=== PATIENT | male | born 1935 | race Caucasian/White ===

== ENCOUNTER → 2016-12-18 | Outpatient (CLI) | payer MEDICARE, BC ==
[~2016-12-18] MED LIST: ALDACTONE 25MG25 M1 PO; ALLOPURINOL100 MG PO; AMBIEN 10MG10 MG PO; ARICEPT PO; ARICEPT10 MG PO; ASPIRIN 32325 MG/TA1 PO; ASPIRIN E.C. 8181 MG PO; ATARAX 25MG25 MG/TAB PO; BENADRYL; CEPHALEXIN500 M1 PO; CINNAMON500 MG PO; CIPRO500 MG PO; CLEOCIN HCL300 MG PO; COREG 25MG25 MG/TAB PO; COUMADIN 5MG5 MG/TAB PO; COUMADIN 77.5 MG/TAB PO; COUMADIN5 MG PO; DESYREL 50MG50 MG PO; DIOVAN 80MG80 MG PO; DIOVAN160 MG PO; HYDROXYURE500 MG/CAP PO; LASIX 20MG TABL20 MG PO; LOPRESSOR100 MG PO; MEDROL4 MG; MELAT3MGTAB; MELATONIN1 MG; METAMUCIL1 PDR PO; NEURONTIN100 MG/CAP PO; PRADAXA 150MG150 MG PO; PROTONIX20 MG PO; ROXICODONE 55 MG/TAB PO; SIMVASTATIN20 MG PO; ZITHROMAX TRI-500 MG PO
== END ==
LOC: COL.VAS 12:46
DX: M79.604 Pain in right leg (principal); R60.0 Localized edema

== ENCOUNTER → 2019-02-06 | Outpatient (CLI) | payer MEDICARE, BC | LOC: COL.RAD 10:10 | DX: K74.69 Other cirrhosis of liver (principal); K80.20 Calculus of gallbladder without cholecystitis without obstruction; N28.1 Cyst of kidney, acquired; I70.0 Atherosclerosis of aorta ==

== ENCOUNTER → 2020-10-04 | Outpatient (REF) | payer MEDICARE, BC | LOC: ZCOL.LAB 18:00 | DX: J32.4 Chronic pansinusitis (principal) ==

== ENCOUNTER → 2020-12-02 | Outpatient (CLI) | payer MEDICARE, BC ==
[~2020-12-02] MED LIST changes: +AMOXICILLIN 8751 TAB PO; +BENADRYL25 M2 PO; +COUMADIN 22.5 MG/TAB PO; +DIGITEK0.25 MG PO; +LANOXIN 0.120.125 MG PO; +LANOXIN 0.25M0.25 MG PO; +LOVENOX 3030 MG/0.3 SQ; +MELATIN 3 MG-11 TAB PO; +MIRALAX PA17 GM/Dose PO; +MONODOX100 PO; +PRILOSEC 20MG20 MG PO; +QUESTRAN4 GM/9 GM PO; +TOPROL XL 50MG50 MG PO; +ZOLOFT 50MG50 MG PO; +ZYLOPRIM 100MG100 MG PO
== END ==
LOC: COL.RAD 08:42
DX: L98.9 Disorder of the skin and subcutaneous tissue, unspecified (principal); D47.2 Monoclonal gammopathy

== ENCOUNTER 2021-01-17 06:52 | Observation (INO) | payer MEDICARE, BC ==
[~2021-01-17] VITALS: Ht 188 cm; Wt 95.5 kg
[~2021-01-17 06:52] MED LIST changes: -AMOXICILLIN 8751 TAB PO; -BENADRYL25 M2 PO; -COUMADIN 22.5 MG/TAB PO; -DIGITEK0.25 MG PO; -LANOXIN 0.120.125 MG PO; -LANOXIN 0.25M0.25 MG PO; -LOVENOX 3030 MG/0.3 SQ; -MELATIN 3 MG-11 TAB PO; -MIRALAX PA17 GM/Dose PO; -MONODOX100 PO; -PRILOSEC 20MG20 MG PO; -QUESTRAN4 GM/9 GM PO; -TOPROL XL 50MG50 MG PO; -ZOLOFT 50MG50 MG PO; -ZYLOPRIM 100MG100 MG PO
[2021-01-17 07:30] LABS: BASO # 0.2 (0.0-0.2); BASO % 1.1 % (0.0-2.0); GRAN # 17.3 (1.4-6.5); GRAN % 85.8 % (42.2-75.2); HEMOGLOBIN 10.7 g/dl (13.5-18.0); LYMPH # 1.4 (1.2-3.4); MEAN CELL VOLUME 131 fl (80.0-100.0); MEAN CORPUSCULAR HEMOGLOBIN 44 pg (27.0-31.0); MEAN CORPUSCULAR HGB CONC 33 g/dl (33.0-37.0); MEAN PLATELET VOLUME 9.7 fl (7.4-10.4); PLATELET COUNT 452 K/mm3 (130-400); RED BLOOD COUNT 2.46 M/mm3 (4.20-5.60); REDCELL DISTRIBUTION WIDTH-CV 15.9 % (11.5-14.5)
[2021-01-17 07:33] LABS: HEMATOCRIT 32.2 % (42.0-52.0)
[2021-01-17 07:38] LABS: INR 1.4 (0.8-3.0); PROTHROMBIN TIME 15.5 SECONDS (9.7-12.8)
[2021-01-17] MEDS ORDERED: ZYLOPRIM 100MG100 MG PO (10:14)
[2021-01-17] MEDS ORDERED: BENADRYL25 M2 PO (10:16)
[2021-01-17] MEDS ORDERED: ZOLOFT 50MG50 MG PO (10:20)
[2021-01-17] MEDS ORDERED: PRILOSEC 20MG20 MG PO (10:21)
[2021-01-17] MEDS ORDERED: MELATIN 3 MG-11 TAB PO (10:22)
--- NOTE | 2021-01-17 12:00 | NUR ---
Pt arrives to medical unit rm [id number] from ED, awake and alert, oriented x 4, accompanied by spouse at bedside. Pt denies pain, just c/o inconvenience of nose bleed continually dripping from bilat nares with rhino rocket in place to left nare. Physical assessment otherwise unremarkable. Pt and pt's question possibility of eating and having a cup of coffee. This nurse is looking into the orders. No further needs reported. Call light in reach.
[2021-01-17 12:02] VITALS: BP 131/70; PULSE 53; TEMP 97.7
[2021-01-17 13:58] LABS: ALBUMIN 3.5 gm/dL (3.5-5.0); CALCIUM 9.1 mg/dL (8.4-10.2); CREATININE, serum 1.09 (0.66-1.25); POTASSIUM 3.6 mmol/L (3.4-5.0); TOTAL PROTEIN 7.4 gm/dL (6.4-8.2)
[2021-01-17 16:06] LABS: HEMOGLOBIN 10.5 g/dl (13.5-18.0)
[2021-01-17 16:08] LABS: HEMATOCRIT 31.4 % (42.0-52.0)
[2021-01-17 16:29] VITALS: BP 125/56; PULSE 86; TEMP 98.3
--- NOTE | 2021-01-17 17:37 | NUR ---
Patient sitting up in bed eating dinner. A&Ox3. VSS. IV CDI. Denies pain, discomfort from rhino rocket in left nare. Blood still coming out of both nares. at the bedside. No further needs expressed from the patient. Call light within reach
[2021-01-17 19:59] VITALS: BP 110/68; PULSE 100; TEMP 97.6
[2021-01-18 00:39] VITALS: BP 125/60; PULSE 98; TEMP 97.8
--- NOTE | 2021-01-18 01:10 | NUR ---
PT DRIED AND CHANGED. PT HAS RHINO ROCKET PLACED IN RIGHT NARE WITH SCANT BLOOD DRAINAGE. VSS. PT A/OX4, PT DENIES PAIN, NO ADDITIONAL NEEDS EXPRESSED AT THIS TIME. CALL LIGHT WITHIN REACH.
[2021-01-18 03:37] VITALS: BP 126/64; PULSE 106; TEMP 98.5
--- NOTE | 2021-01-18 06:01 | NUR ---
PT HAD UNEVENTFUL NIGHT, RHINO ROCKET REMAINS IN RIGHT NASAL WITH LITTLE TO SCANT BLOOD DRAINAGE. PT REPORTS SLEEPING WELL DURING THE NIGHT AND DENIES PAIN AND SOB. PT EXPRESSES NO ADDITIONAL NEEDS AT THIS TIME. CALL LIGHT WITHIN REACH.
[2021-01-18 06:54] LABS: HEMOGLOBIN 10.6 g/dl (13.5-18.0); MEAN CELL VOLUME 130 fl (80.0-100.0); MEAN CORPUSCULAR HEMOGLOBIN 43 pg (27.0-31.0); MEAN CORPUSCULAR HGB CONC 34 g/dl (33.0-37.0); PLATELET COUNT 462 K/mm3 (130-400); RED BLOOD COUNT 2.44 M/mm3 (4.20-5.60)
[2021-01-18 07:00] LABS: HEMATOCRIT 31.6 % (42.0-52.0)
[2021-01-18 07:07] LABS: CALCIUM 9.1 mg/dL (8.4-10.2); CREATININE, serum 0.9 (0.66-1.25); POTASSIUM 3.5 mmol/L (3.4-5.0)
[2021-01-18 07:43] VITALS: BP 108/61; PULSE 113; TEMP 97.4
[2021-01-18 07:45] LABS: BASOPHIL 3 % (0-2); LYMPHOCYTE 7 % (20.0-51.0); NEUTROPHILS 85 % (42.0-75.2); NUCLEATED RED BLOOD CELL 2 (0-6)
[2021-01-18 07:46] LABS: ANISOCYTOSIS 1+; HYPOCHROMIA 1+; PLATELET ESTIMATE INCREASED (NORMAL)
--- NOTE | 2021-01-18 08:30 | NUR ---
PT PLEASANT, AOX4, SOME DRAINAGE FROM BOTH NARES, PT DENIES PAIN AT THIS TIME, PT ASSESSMENT PERFORMED, MEDICATIONS GIVEN, NO OTHER NEEDS AT THIS TIME.
--- NOTE | 2021-01-18 11:13 | NUR ---
Plan: Return home with Karen Assessment: SW met with patient in room about plan. Patient reports that he would like to return home with minimal supports and reports that his can handle it. Patient reports that he has a pacemaker and cpap machine. Patient reports that Dr. Aguilar is PCP but also works with Dr. Pascual and Dr. Jean. Patient obtians medications from [facility] without any concerns. does transport and patient reports he no longer drives. [facility] reports [facility] Action: Educated on supports system, declined [facility]. Noadditional need identified,
[2021-01-18] MEDS ORDERED: LOVENOX 3030 MG/0.3 SQ (11:40)
--- NOTE | 2021-01-18 11:46 | NUR ---
CALLED ENT SPECIALIST ABOUT INC BLOODY DRAINAGE FROM L NARE, VERBAL ORDER GIVEN FOR AFRIN NASAL SPRAY, PHARMACY TO BRING MEDICATION UP, CALLED EDDIE TO UPDATE.
[2021-01-18 12:06] VITALS: BP 113/63; PULSE 120; TEMP 97.7
--- NOTE | 2021-01-18 14:40 | NUR ---
iv removed, tele removed, discharge education provided, no quesions at thist itme
[2021-01-26] MEDS ORDERED: MONODOX100 PO (12:44)
[2021-01-26] MEDS ORDERED: AMOXICILLIN 8751 TAB PO (12:44)
[2021-01-26] MEDS ORDERED: COUMADIN 5MG5 MG/TAB PO (12:45)
[2021-01-26] MEDS ORDERED: DIGITEK0.25 MG PO (12:46)
[2021-01-26] MEDS ORDERED: TOPROL XL 50MG50 MG PO (12:46)
[2021-01-26] MEDS ORDERED: MIRALAX PA17 GM/Dose PO (12:46)
[2021-07-08] MEDS ORDERED: LANOXIN 0.25M0.25 MG PO (11:29)
[2021-07-08] MEDS ORDERED: LANOXIN 0.120.125 MG PO (11:30)
[2021-07-08] MEDS ORDERED: HYDROXYURE500 MG/CAP PO (11:34)
[2021-07-08] MEDS ORDERED: QUESTRAN4 GM/9 GM PO (11:37)
[2021-07-08] MEDS ORDERED: COUMADIN 22.5 MG/TAB PO ×2 (11:41→11:42)
== END 2021-01-18 14:40 | disposition home or self-care (01) ==
LOC: COL.ER 06:52 → MEDICAL 10:25
PROVIDERS: Family Medicine; Physician Assistant; ADMIT Hospitalist
DX: J95.830 Postprocedural hemorrhage of a respiratory system organ or structure following a respiratory system procedure (principal); R04.0 Epistaxis; D53.9 Nutritional anemia, unspecified; D72.829 Elevated white blood cell count, unspecified; D69.6 Thrombocytopenia, unspecified; K59.00 Constipation, unspecified; I50.9 Heart failure, unspecified; E87.3 Alkalosis; I48.91 Unspecified atrial fibrillation; K21.9 Gastro-esophageal reflux disease without esophagitis; J44.9 Chronic obstructive pulmonary disease, unspecified; M10.9 Gout, unspecified; N18.9 Chronic kidney disease, unspecified; K74.60 Unspecified cirrhosis of liver; F03.90 Unspecified dementia, unspecified severity, without behavioral disturbance, psychotic disturbance, mood disturbance, and anxiety; F32.9 Major depressive disorder, single episode, unspecified; Z79.82 Long term (current) use of aspirin; Z79.01 Long term (current) use of anticoagulants; Z79.899 Other long term (current) drug therapy; Z86.73 Personal history of transient ischemic attack (TIA), and cerebral infarction without residual deficits; Z87.891 Personal history of nicotine dependence
CPT/HCPCS: G0378

== ENCOUNTER → 2021-02-21 | Outpatient (CLI) | payer MEDICARE, BC ==
[~2021-02-21] MED LIST changes: +AMOXICILLIN 8751 TAB PO; +BENADRYL25 M2 PO; +COUMADIN 22.5 MG/TAB PO; +DIGITEK0.25 MG PO; +LANOXIN 0.120.125 MG PO; +LANOXIN 0.25M0.25 MG PO; +LOVENOX 3030 MG/0.3 SQ; +MELATIN 3 MG-11 TAB PO; +MIRALAX PA17 GM/Dose PO; +MONODOX100 PO; +PRILOSEC 20MG20 MG PO; +QUESTRAN4 GM/9 GM PO; +TOPROL XL 50MG50 MG PO; +ZOLOFT 50MG50 MG PO; +ZYLOPRIM 100MG100 MG PO
== END ==
LOC: COL.RAD 12:23
DX: R13.10 Dysphagia, unspecified (principal)

== ENCOUNTER 2021-03-04 07:32 | Day surgery (SDC) | payer MEDICARE, BC ==
[~2021-03-04] VITALS: Ht 188 cm; Wt 82.1 kg
[~2021-03-04 07:32] MED LIST changes: -COUMADIN 22.5 MG/TAB PO; -LANOXIN 0.120.125 MG PO; -LANOXIN 0.25M0.25 MG PO; -QUESTRAN4 GM/9 GM PO
[2021-03-04 08:02] VITALS: BP 116/56; PULSE 79; TEMP 97.9
[2021-03-04] MEDS ORDERED: PRILOSEC 20MG20 MG PO (08:22)
[2021-03-04] MEDS ORDERED: TOPROL XL 50MG50 MG PO (08:22)
[2021-03-04 09:05] VITALS: BP 111/59; PULSE 71; TEMP 97.5
--- NOTE | 2021-03-04 09:05 | NUR ---
PATIENT TRANSPORTED PER CART ACCOMPANIED BY ENDO RN TO BAY 2 FROM PROCEDURE ROOM. PATIENT AMBULATED FROM CART TO CHAIR WITH 2 ASSIST SLOW STEADY GAIT. PATIENT TALKS WITH STAFF AND FAMILY. MONITORS APPLIED. VSS. PATIENT GIVEN GRAPE JUICE.
--- NOTE | 2021-03-04 09:09 | NUR ---
Initial visit; Patient requested prayer prior to his Endoscopy. Pattern Drum Maker offered comfort and prayer and will keep Tavon in her prayers.
[2021-03-04 09:15] VITALS: BP 109/57; PULSE 61
--- NOTE | 2021-03-04 09:15 | NUR ---
VSS ON ROOM AIR. PATIENT TALKS WITH FAMILY. PATIENT TAKES SIPS WITHOUT PROBLEMS. PATIENT GIVEN JELLO.
[2021-03-04 09:30] VITALS: BP 106/55; PULSE 61
--- NOTE | 2021-03-04 09:35 | NUR ---
DR FERRELL SPEAKS WITH PATIENT AND FAMILY. PATIENT EATS AFEW BITES OF JELLO. PATIENT DENIES DISCOMFORT AND NAUSEA. STATES THAT PATIENT HAS NOT BEEN EATING MUCH AT ALL PAST SEVERAL WEEKS. PATIENT STATES NO APPETITE. DAUGHTER IN ROOM AND LISTENS.
[2021-03-04 09:45] VITALS: BP 108/63; PULSE 61
--- NOTE | 2021-03-04 09:45 | NUR ---
VSS ON ROOM AIR. PATIENT DENIES DISCOMFORT AND NAUSEA.
[2021-03-04 10:00] VITALS: BP 104/52; PULSE 59
--- NOTE | 2021-03-04 10:00 | NUR ---
VSS ON ROOM AIR. IV DC'D WITH CATHETER TIP INTACT. PRESSURE AND BANDAGE APPLIED. DISCHARGE INSTRUCTIONS GIVEN VERBAL AND DISCHARGE INFORMATION PACKET PROVIDED. SPOKE WITH DR FERRELL AND INFORMED FAMILY THAT PATIENT MAY RESTART TAKING COUMADIN TODAY. QUESTIONS ANSWERED AND PATIENT AND FAMILY VOICED UNDERSTANDING. PATIENT CHANGES INTO STREET CLOTHES. PATIENT DISCHARGED PER WHEEL CHAIR ACCOMPANIED BY STAFF TO [facility].
[2021-07-08] MEDS ORDERED: LANOXIN 0.25M0.25 MG PO (11:29)
[2021-07-08] MEDS ORDERED: LANOXIN 0.120.125 MG PO (11:30)
[2021-07-08] MEDS ORDERED: HYDROXYURE500 MG/CAP PO (11:34)
[2021-07-08] MEDS ORDERED: QUESTRAN4 GM/9 GM PO (11:37)
[2021-07-08] MEDS ORDERED: COUMADIN 22.5 MG/TAB PO ×2 (11:41→11:42)
== END 2021-03-04 10:10 | disposition home or self-care (01) ==
LOC: SDCO 07:32
DX: K29.30 Chronic superficial gastritis without bleeding (principal); R13.10 Dysphagia, unspecified; R63.4 Abnormal weight loss; K74.60 Unspecified cirrhosis of liver; G47.00 Insomnia, unspecified; G47.33 Obstructive sleep apnea (adult) (pediatric); M19.90 Unspecified osteoarthritis, unspecified site; M10.9 Gout, unspecified; E78.5 Hyperlipidemia, unspecified; I83.90 Asymptomatic varicose veins of unspecified lower extremity; I63.9 Cerebral infarction, unspecified; I10 Essential (primary) hypertension; I48.91 Unspecified atrial fibrillation; J44.9 Chronic obstructive pulmonary disease, unspecified; D47.3 Essential (hemorrhagic) thrombocythemia; F32.9 Major depressive disorder, single episode, unspecified; Z95.0 Presence of cardiac pacemaker; Z20.822 Contact with and (suspected) exposure to COVID-19; Z86.73 Personal history of transient ischemic attack (TIA), and cerebral infarction without residual deficits; Z98.52 Vasectomy status
CPT/HCPCS: J2704; J7030

== ENCOUNTER 2021-04-25 11:15 | Outpatient (RCR) | payer MEDICARE, BC ==
[2021-07-08] MEDS ORDERED: LANOXIN 0.25M0.25 MG PO (11:29)
[2021-07-08] MEDS ORDERED: LANOXIN 0.120.125 MG PO (11:30)
[2021-07-08] MEDS ORDERED: HYDROXYURE500 MG/CAP PO (11:34)
[2021-07-08] MEDS ORDERED: QUESTRAN4 GM/9 GM PO (11:37)
[2021-07-08] MEDS ORDERED: COUMADIN 22.5 MG/TAB PO ×2 (11:41→11:42)
== END 2021-05-21 | disposition home or self-care (01) ==
LOC: WSST
DX: R13.10 Dysphagia, unspecified (principal)

== ENCOUNTER 2021-05-01 07:03 | Emergency (ER) | payer MEDICARE, BC ==
[~2021-05-01] VITALS: Ht 188 cm; Wt 88.6 kg
[2021-05-01 07:03] VITALS: TEMP 97.8
[2021-05-01 07:28] LABS: HEMATOCRIT 29.2 % (42.0-52.0); HEMOGLOBIN 9.5 g/dl (13.5-18.0); MEAN CELL VOLUME 122 fl (80.0-100.0); MEAN CORPUSCULAR HEMOGLOBIN 40 pg (27.0-31.0); MEAN CORPUSCULAR HGB CONC 33 g/dl (33.0-37.0); MEAN PLATELET VOLUME 9.8 fl (7.4-10.4); PLATELET COUNT 417 K/mm3 (130-400); REDCELL DISTRIBUTION WIDTH-CV 17.6 % (11.5-14.5)
[2021-05-01 07:33] LABS: INR 1.3 (0.8-3.0); PROTHROMBIN TIME 14.4 SECONDS (9.7-12.8)
[2021-05-01 07:37] LABS: ALBUMIN 2.9 gm/dL (3.5-5.0); BILIRUBIN,TOTAL 1.2 mg/dL (0.0-1.0); CALCIUM 8.6 mg/dL (8.4-10.2); CREATININE, serum 1.34 (0.66-1.25); TOTAL PROTEIN 6.6 gm/dL (6.4-8.2)
[2021-05-01 07:58] LABS: BASOPHIL 3 % (0-2); EOSINOPHIL 1 % (0-4); NUCLEATED RED BLOOD CELL 1 (0-6)
[2021-05-01 07:59] LABS: PLATELET ESTIMATE INCREASED (NORMAL)
[2021-05-01 08:03] LABS: TARGET CELLS 1+
[2021-05-01 08:04] LABS: HOWELL-JOLLY BODIES 1+; HYPOCHROMIA 1+
[2021-05-01 08:05] LABS: LYMPHOCYTE 13 % (20.0-51.0); NEUTROPHILS 78 % (42.0-75.2)
[2021-05-01 08:07] LABS: ANISOCYTOSIS 2+
[2021-05-01 09:21] VITALS: BP 110/51; PULSE 61
[2021-07-08] MEDS ORDERED: LANOXIN 0.25M0.25 MG PO (11:29)
[2021-07-08] MEDS ORDERED: LANOXIN 0.120.125 MG PO (11:30)
[2021-07-08] MEDS ORDERED: HYDROXYURE500 MG/CAP PO (11:34)
[2021-07-08] MEDS ORDERED: QUESTRAN4 GM/9 GM PO (11:37)
[2021-07-08] MEDS ORDERED: COUMADIN 22.5 MG/TAB PO ×2 (11:41→11:42)
== END 2021-05-01 09:50 | disposition home or self-care (01) ==
LOC: COL.ER 07:03
PROVIDERS: Family Medicine
DX: S01.81XA Laceration without foreign body of other part of head, initial encounter (principal); D63.1 Anemia in chronic kidney disease; I48.91 Unspecified atrial fibrillation; F32.9 Major depressive disorder, single episode, unspecified; J44.9 Chronic obstructive pulmonary disease, unspecified; K21.9 Gastro-esophageal reflux disease without esophagitis; F03.90 Unspecified dementia, unspecified severity, without behavioral disturbance, psychotic disturbance, mood disturbance, and anxiety; I50.9 Heart failure, unspecified; M10.9 Gout, unspecified; Z87.891 Personal history of nicotine dependence; Z79.01 Long term (current) use of anticoagulants; Z79.899 Other long term (current) drug therapy; W22.8XXA Striking against or struck by other objects, initial encounter; Y92.002 Bathroom of unspecified non-institutional (private) residence as the place of occurrence of the external cause

== ENCOUNTER → 2021-07-14 | Outpatient (CLI) | payer MEDICARE, BC ==
[~2021-07-14] VITALS: Ht 188 cm; Wt 68.9 kg
[~2021-07-14] MED LIST changes: +COUMADIN 22.5 MG/TAB PO; +LANOXIN 0.120.125 MG PO; +LANOXIN 0.25M0.25 MG PO; +QUESTRAN4 GM/9 GM PO
[2021-07-14 12:38] VITALS: BP 130/66; PULSE 80; TEMP 97.9
[2021-07-14 13:13] LABS: INR 1.4 (0.8-3.0); PROTHROMBIN TIME 15.1 SECONDS (9.7-12.8)
[2021-07-14 14:15] VITALS: BP 124/69; PULSE 80
== END ==
LOC: COL.RAD 07-10 08:15
PROVIDERS: Internal Medicine
DX: J90 Pleural effusion, not elsewhere classified (principal)